=== PATIENT | female | born 1980 | race African-American/Black ===

== ENCOUNTER 2019-08-21 08:25 | Emergency (ER) | payer BC ==
[2019-08-21 08:42] VITALS: BP 139/72; PULSE 97; RESP 18; TEMP 99.5
--- NOTE | 2019-08-21 09:33 | XR ---
EXAMINATION TYPE: XR ankle complete RT , 3 VIEWS DATE OF EXAM ORDERED: 08/21/2019 HISTORY: inversion injury. COMPARISON: None. FINDINGS: There is mild soft tissue swelling adjacent to the lateral malleolus. No fracture, disloca tion or ankle joint effusion is seen. IMPRESSION: NO ACUTE OSSEOUS LESION.
--- NOTE | 2019-08-21 09:45 | ED ---
Lower Extremity Injury HPI - General Chief Complaint: Extremity Injury, Lower Stated Complaint: right ankle pain Time Seen by Provider: 08/21/19 08:35 Source: patient Mode of arrival: wheelchair - History of Present Illness Initial Comments: 39yo female presenting today for chief complaint of right ankle pain. Patient states she woke up in the middle night around 4:30-5AM to get food when she slipped on the top step falling on her bottom twisting her right ankle. Patient denies any injury to the head neck back upper extremities or left leg. Patient states she inverted her right ankle and has swelling on the lateral aspect. Patient sates he woke up this morning and had pain when with weightbearing she presents emergency department to evaluate for fracture. Patient denies any numbness tingling loss sensation coolness pallor of extremity. Patient states she is able still able to fully range at the joint. Remaining every system negative upon arrival patient appears well no signs of acute distress ambulatory with limp - Related Data Previous Rx's Medication Instructions Recorded HYDROcodone/APAP 5-325MG [Runge 5] 1 - 2 each PO Q4H PRN #20 tab 03/27/15 Allergies Allergy/AdvReac Type Severity Reaction Status Date / Time No Known Allergies Allergy Verified 08/21/19 08:58 Review of Systems ROS Statement: Those systems with pertinent positive or pertinent negative responses have been documented in the HPI. ROS Other: All systems not noted in ROS Statement are negative. Past Medical History Past Medical History: Diabetes Mellitus, GERD/Reflux, Skin Disorder Additional Past Medical History / Comment(s): HX SL MURMUR CHILD. GESTATIONAL DIABETES, GERD W/ . MINOR ECZEMA. History of Any Multi-Drug Resistant Organisms: None Reported Past Surgical History: Section, Tubal Ligation Additional Past Surgical History / Comment(s): Sinus Surgery. Past Anesthesia/Blood Transfusion Reactions: Previous Problems w/ Anesthesia Additional Past Anesthesia/Blood Transfusion Reaction / Comment(s): 2010 W/ BLOCK FOR C-S DEVELOPED SEVERE ITCHING. Past Psychological History: No Psychological Hx Reported Smoking Status: Never smoker Past Alcohol Use History: Occasional Past Drug Use History: None Reported - Past Family History Father Family Medical History: Cancer General Exam - General Exam Comments Initial Comments: General: The patient is awake and alert, in no distress, and does not appear acutely ill. Eye: Pupils are equal, round and reactive to light, extra-ocular movements are intact. No nystagmus. There is normal conjunctiva bilaterally. No signs of icterus. No raccoon or amaya sign. Cardiovascular: There is a regular rate and rhythm. No murmur, rub or gallop is appreciated. Respiratory: Lungs are clear to auscultation, respirations are non-labored, breath sounds are equal. No wheezes, stridor, rales, or rhonchi. Musculoskeletal: Upon inspection of the ankles bilaterally there is mild soft tissue swelling noted over the right lateral malleolus. Patient is tenderness to palpation. Achilles tendon appears intact. She is able to range at the rig ht ankle without difficulties complaining of mild discomfort. Strength preserved sensation intact proximal distal to injury site equal and comparison with unaffected extremity. Not foot drop. No tenderness to palpation of the proximal fibula to palpation or range motion at the right knee. Radial and DP pulses equal bilaterally 2+. Neurological: A&O x 3. CN II-XII intact grossly, There are no obvious motor or sensory deficits. Coordination appears grossly intact. Speech is normal. Skin: Skin is warm and dry and no rashes or lesions are noted. Psychiatric: Cooperative, appropriate mood & affect, normal judgment. Course Vital Signs 08/21/19 08:37 Temperature 99.5 F Pulse Rate 97 Respiratory 18 Rate Blood Pressure 139/72 O2 Sat by Pulse 100 Oximetry Medical Decision Making - Medical Decision Making 39yo presenting for right ankle pain. laterall malleolus swelling/pain. Patient have asked intact. Imaging studies reveal no acute osseous process. Cannot rule out ligamentous injury/tendon injury. Patient placed in ankle brace. Given instruction to use cruthces for comfort and f/u with PCP. For persistent symptoms or recurrent patient obtain orthopedic referral from primary care [facility] discussed risks instruction patient is discharged appearing well after personally reviewing imaging studies. Case discussed with Dr. Diaz. Disposition Clinical Impression: Right ankle sprain, Right ankle injury, Right ankle swelling Disposition: HOME SELF-CARE Condition: Good Instructions (If sedation given, give patient instructions): Ankle Sprain (ED), R.I.C.E. Treatment (ED) Additional Instructions: Please use medication as discussed. Please follow-up with family doctor in the next 2 days, use crutches and brace for comfort, recommend orthopedic follow-up if your symptoms are persistent. Please return to emergency room if the symptoms increase or worsen or for any other concerns. Is patient prescribed a controlled substance at d/c from ED?: No Referrals: Laura Buck MD [Primary Care Provider] - 1-2 days Time of Disposition: 09:43
== END 2019-08-21 10:10 | disposition home or self-care (01) ==
LOC: EC 08:25
DX: S93.401A Sprain of unspecified ligament of right ankle, initial encounter (principal); W10.9XXA Fall (on) (from) unspecified stairs and steps, initial encounter; X50.1XXA Overexertion from prolonged static or awkward postures, initial encounter; Y93.89 Activity, other specified
CPT/HCPCS: 99283

== ENCOUNTER → 2022-10-30 | Outpatient (CLI) | payer OTHER ==
--- NOTE | 2022-10-31 07:22 | MM ---
Reason for Exam: Screening (asymptomatic). Baseline mammogram. Patient History: Menarche at age 13. First Full-Term at age 21. Premenopausal. Patient has history of breast feeding. Last menstrual period: 10/13/2022 Risk Values: Christy 5 year model risk: 0.4%. NCI Lifetime model risk: 8.0%. Prior Study Comparison: Patient's first Mammogram. Tissue Density: The breast tissue is heterogeneously dense. This may lower the sensitivity of mammography. Findings: Analyzed By CAD. Subtle distortion middle to posterior depth upper outer aspect right breast is more prominent on the XCCL view image 54 corresponding to MLO image 34. Possible asymmetric prominent tissue mimicking spiculated lesion but follow-up is advised. Overall Assessment: Incomplete: need additional imaging evaluation, BI-RAD 0 Management: Diagnostic Mammogram of the right breast. Diagnostic Breast Ultrasound of the right breast. Return for additional spot 3-D views and 3-D true lateral view along with targeted ultrasound. Patient should continue monthly self-breast exams. A clinical breast exam by your physician is recommended on an annual basis. This exam should not preclude additional follow-up of suspicious palpable abnormalities. Note on Christy scores and lifetime risk: 1. A Christy score greater than 3% is considered moderate risk. If this is the case, consider specialist referral to assess eligibility for a risk reducing agent. 2. If overall lifetime risk for the development of breast cancer is 20% or higher, the patient may qualify for future screening with alternating mammogram and breast MRI. Electronically signed and approved by: Pedro Bernard M.D.
== END | disposition home or self-care (01) ==
LOC: RADMAMWWP 07:21
PROVIDERS: ATTEND Obstetrics & Gynecology
DX: Z12.31 Encounter for screening mammogram for malignant neoplasm of breast (principal)
CPT/HCPCS: 77063; 77067

== ENCOUNTER → 2022-11-04 | Outpatient (CLI) | payer OTHER ==
--- NOTE | 2022-11-04 14:30 | USB ---
Reason for Exam: Additional evaluation requested from abnormal screening. Patient History: Menarche at age 13. First Full-Term at age 21. Premenopausal. Patient has history of breast feeding. Risk Values: Christy 5 year model risk: 0.4%. NCI Lifetime model risk: 8.0%. Technique: Method: Targeted. Prior Study Comparison: 10/30/2022 Bilateral MG 3D screening mammo w/cad, [facility]. Findings: The upper outer quadrant of the right breast, the axilla of the right breast and the retroareolar of the right breast were scanned. Imaged: Ultrasound imaging of: Area of concern in the right upper outer quadrant, retroareolar region and axilla. No evidence for organizing fluid collection or mass. Overall Assessment: Negative, BI-RAD 1 Management: Screening Mammogram of both breasts in 1 year. A clinical breast exam by your physician is recommended on an annual basis and results should be correlated with mammographic findings. This exam should not preclude additional follow-up of suspicious palpable abnormalities. Results were given to the patient verbally at the time of exam. Electronically signed and approved by: Hardik Villasenor DO
--- NOTE | 2022-11-04 14:59 | MM ---
Reason for Exam: Additional evaluation requested from abnormal screening. Last screening mammogram was performed less than 1 month ago. Patient History: Menarche at age 13. First Full-Term at age 21. Premenopausal. Patient has history of breast feeding. Risk Values: Christy 5 year model risk: 0.4%. NCI Lifetime model risk: 8.0%. Tissue Density: Right: The breast tissue is heterogeneously dense. This may lower the sensitivity of mammography. Findings: Analyzed By CAD. Fibroglandular tissue in the right upper outer quadrant is similar morphology compresses out on spot compression imaging. No new suspicious masses, calcifications or distortions. Overall Assessment: Incomplete: need additional imaging evaluation, BI-RAD 0 Management: Diagnostic Breast Ultrasound of the right breast. . Results were given to the patient verbally at the time of exam. Patient should continue monthly self-breast exams. A clinical breast exam by your physician is recommended on an annual basis. This exam should not preclude additional follow-up of suspicious palpable abnormalities. Note on Christy scores and lifetime risk: 1. A Christy score greater than 3% is considered moderate risk. If this is the case, consider specialist referral to assess eligibility for a risk reducing agent. 2. If overall lifetime risk for the development of breast cancer is 20% or higher, the patient may qualify for future screening with alternating mammogram and breast MRI. Electronically signed and approved by: Hardik Villasenor DO
== END | disposition home or self-care (01) ==
LOC: RADMAMWWP 13:39
PROVIDERS: ATTEND Obstetrics & Gynecology
DX: R92.8 Other abnormal and inconclusive findings on diagnostic imaging of breast (principal)
CPT/HCPCS: 77061; 77065

== ENCOUNTER 2024-09-07 08:05 | Emergency (ER) | payer OTHER ==
--- NOTE | 2024-09-07 08:23 | ED ---
General Adult HPI - General Chief complaint: Neuro Symptoms/Deficit Stated complaint: Numbness in lip Time Seen by Provider: 09/07/24 08:10 Source: patient, RN notes reviewed Mode of arrival: ambulatory Limitations: no limitations - History of Present Illness Initial comments: Patient is a 44-year-old female present to the emergency department with conc erns for left lip numbness. Onset of symptoms was when she woke several hours ago. Patient has some nausea at that time however that only lasted a few minutes and has resolved. No weakness. No history of similar symptoms previously. No other area of involvement. No confusion. No visual changes. No speech problem. - Related Data Home Medications Medication Instructions Recorded Confirmed No Known Home Medications 09/07/24 09/07/24 Allergies Allergy/AdvReac Type Severity Reaction Status Date / Time No Known Allergies Allergy Verified 09/07/24 09:00 Review of Systems ROS Statement: Those systems with pertinent positive or pertinent negative responses have been documented in the HPI. ROS Other: All systems not noted in ROS Statement are negative. Constitutional: Denies: fever Eyes: Denies: eye pain ENT: Denies: ear pain Respiratory: Denies: cough Cardiovascular: Denies: chest pain Endocrine: Denies: fatigue Gastrointestinal: Denies: abdominal pain Neurological: Reports: as per HPI. Denies: headache, weakness, confusion Past Medical History Past Medical History: GERD/Reflux, Skin Disorder Additional Past Medical History / Comment(s): HX SL MURMUR CHILD. GESTATIONAL DIABETES, GERD W/ . MINOR ECZEMA. History of Any Multi-Drug Resistant Organisms: None Reported Past Surgical History: Section, Tubal Ligation Additional Past Surgical History / Comment(s): Sinus Surgery. Past Anesthesia/Blood Transfusion Reactions: Previous Problems w/ Anesthesia Additional Past Anesthesia/Blood Transfusion Reaction / Comment(s): 2010 W/ BLOCK FOR C-S DEVELOPED SEVERE ITCHING. Past Psychological History: No Psychological Hx Reported Smoking Status: Never smoker Past Alcohol Use History: Occasional Past Drug Use History: None Reported - Past Family History Father Family Medical History: Cancer General Exam Limitations: no limitations General appearance: alert, in no apparent distress Head exam: Present: normocephalic Eye exam: Present: normal appearance, PERRL, EOMI ENT exam: Present: normal oropharynx Neck exam: Present: normal inspection Respiratory exam: Present: normal lung sounds bilaterally Cardiovascular Exam: Present: regular rate, normal rhythm GI/Abdominal exam: Present: soft. Absent: tenderness Extremities exam: Present: normal inspection Neurological exam: Present: alert, oriented X3, CN II-XII intact. Absent: motor sensory deficit Expanded Neurological exam: Present: protecting the airway Speech: Present: fluid speech Cranial nerves: EOM's Intact: Normal, Facial Sensation: Normal Cerebellar function: Finger to Nose: Normal Sensory exam: Upper Extremity Light Touch: Normal, Lower Extremity Light Touch: Normal Motor strength exam: RUE: 5, LUE: 5, RLE: 5, LLE: 5 Eye Response: (4) open spontaneously Motor Response: (6) obeys commands Verbal Response: (5) oriented Psychiatric exam: Present: normal affect, normal mood Skin exam: Present: normal color Course Vital Signs 09/07/24 09/07/24 08:06 09:06 Temperature 98.1 F Pulse Rate 106 H 86 Respiratory 20 18 Rate Blood Pressure 189/94 155/88 O2 Sat by Pulse 100 98 Oximetry Medical Decision Making - Medical Decision Making Was pt. sent in by a medical professional or institution (Dr. PA, FORGING DIE SINKER, urgent care, hospital, or custodial...) When possible be specific @ -No Did you speak to anyone other than the patient for history (EMS, parent, family, police, friend...)? What history was obtained from this source @ -No Did you review nursing and triage notes (agree or disagree)? Why? @ -I reviewed and agree with nursing and triage notes Were old charts reviewed (outside hosp., previous admission, EMS record, old EKG, old radiological studies, urgent care reports/EKG's, custodial records)? Report findings @ -No old charts were reviewed Differential Diagnosis (chest pain, altered mental status, abdominal pain women, abdominal pain men, vaginal bleeding, weakness, fever, dyspnea, syncope, headache, dizziness, GI bleed, back pain, seizure, CVA, palpatations, mental health, musculoskeletal)? @ -Differential Weakness: Hypoglycemia, shock, sepsis, hyponatremia, anemia, infection, OH, ETOH, adverse medicine reaction, overdose, stroke, this is not meant to be an all-inclusive list. EKG interpreted by me (3pts min.). @ -As above X-rays interpreted by me (1pt min.). @ -None done CT interpreted by me (1pt min.). @ -None done U/S interpreted by me (1pt. min.). @ -None done What testing was considered but not performed or refused? (CT, X-rays, U/S, labs)? Why? @ -None What meds were considered but not given or refused? Why? @ -None Did you discuss the management of the patient with other professionals (professionals i.e. DrMc, PA, FORGING DIE SINKER, lab, RT, psych nurse, social worker clinical, extraction machine operator, teacher, chief juvenile probation officer, watch case polisher)? Give summary @ -No Was smoking cessation discussed for >3mins.? @ -No Was critical care preformed (if so, how long)? @ -No Were there social determinants of health that impacted care today? How? (Homelessness, low income, unemployed, alcoholism, drug addiction, transportation, low edu. Level, literacy, decrease access to med. care, penitentiary, rehab)? @ -No Was there de-escalation of care discussed even if they declined (Discuss DNR or withdrawal of care, Hospice)? DNR status @ -No What co-morbidities impacted this encounter? (DM, HTN, Smoking, COPD, CAD, Cancer, CVA, ARF, Chemo, Hep., AIDS, mental health diagnosis, sleep apnea, morbid obesity)? @ -None Was patient admitted / discharged? Hospital course, mention meds given and route, prescriptions, significant lab abnormalities, going to OR and other pertinent info. @ -Patient presents with numbness sensation to her left lower lip. No weakness on exam. No other neurological symptoms or abnormal findings on exam. CT scan unremarkable. Patient reevaluated and updated. Patient we discharged with follow-up with her primary care physician. Undiagnosed new problem with uncertain prognosis? @ -No Drug Therapy requiring intensive monitoring for toxicity (Heparin, Nitro, Insulin, Cardizem)? @ -No Were any procedures done? @ -No Diagnosis/symptom? @ -Paresthesia Acute, or Chronic, or Acute on Chronic? @ -Acute Uncomplicated (without systemic symptoms) or Complicated (systemic symptoms)? @ -Default Side effects of treatment? @ -No Exacerbation, Progression, or Severe Exacerbation? @ -No Poses a threat to life or bodily function? How? (Chest pain, [place], [place], pneumonia, PE, COPD, DKA, ARF, appy, cholecystitis, CVA, Diverticulitis, Homicidal, Suicidal, threat to staff... and all critical care pts) @ -No Disposition Clinical Impression: Paresthesia Disposition: HOME SELF-CARE Condition: Stable Instructions (If sedation given, give patient instructions): Paresthesia (ED) Additional Instructions: Please do follow-up with your primary care physician in the next day or 2 for recheck. Return for weakness, weakness of the face, loss of sensation, confusion, speech problems, worsening symptoms or any other concerns. Is patient prescribed a controlled substance at d/c from ED?: No Referrals: Laura Buck MD [Primary Care Provider] - 1-2 days Time of Disposition: 09:37
--- NOTE | 2024-09-07 08:50 | CT ---
EXAMINATION TYPE: CT brain wo con DATE OF EXAM: 09/07/2024 8:43 AM COMPARISON: None. CLINICAL INDICATION: Female, 44 years old with history of neuro, Nuimbness in lip TECHNIQUE: Brain: Axial CT images of the brain were obtained with coronal and sagittal reformats created and rev iewed. Contrast used: None. Oral contrast used: None. CT DLP: 1168.6 mGycm, Automated exposure control for dose reduction was used. FINDINGS: Brain: Extra-axial spaces: No abnormal extra-axial fluid collections. Ventricular system: Within normal limits Cerebral parenchyma: No acute intraparenchymal hemorrhage or mass effect. The hagan-white junction is well differentiated. Cerebellum: Unremarkable. Mass effect: No evidence of midline shift. Intracranial vasculature: unremarkable Soft tissues: Normal. Calvarium/osseous structures: No depressed skull fracture. Paranasal sinuses and mastoid air cells: Mild scattered paranasal sinus disease. Visualized orbits: Orbital contents are intact. IMPRESSION: No acute intracranial process. [facility], , 09/07/2024 8:47 AM
[2024-09-07 09:07] VITALS: RESP 18
[2024-09-07 09:44] VITALS: BP 148/89; PULSE 76; TEMP 97.9
== END 2024-09-07 09:46 | disposition home or self-care (01) ==
LOC: EC 08:05
DX: R20.2 Paresthesia of skin (principal)
CPT/HCPCS: 70450; 99284; 99285

== ENCOUNTER → 2024-10-07 | Outpatient (CLI) | payer OTHER ==
--- NOTE | 2024-10-07 08:25 | MM ---
Reason for Exam: Screening (asymptomatic). Last mammogram was performed 2 year(s) and 0 month(s) ago. Patient History: Menarche at age 13. First Full-Term at age 21. Premenopausal. Patient has history of breast feeding. Risk Values: Christy 5 year model risk: 0.5%. NCI Lifetime model risk: 7.9%. Prior Study Comparison: 10/30/2022 Bilateral MG 3D screening mammo w/cad, [facility]. 11/04/2022 Right MG 3D work up w/cad RT, [facility]. Tissue Density: The breasts are heterogeneously dense, which may obscure small masses. Findings: Analyzed By CAD. There is no suspicious group of microcalcifications or new suspicious mass in either breast. Overall Assessment: Negative, BI-RAD 1 Management: Screening Mammogram of both breasts in 1 year. . Patient should continue monthly self-breast exams. A clinical breast exam by your physician is recommended on an annual basis. This exam should not preclude additional follow-up of suspicious palpable abnormalities. Note on Christy scores and lifetime risk: 1. A Christy score greater than 3% is considered moderate risk. If this is the case, consider specialist referral to assess eligibility for a risk reducing agent. 2. If overall lifetime risk for the development of breast cancer is 20% or higher, the patient may qualify for future screening with alternating mammogram and breast MRI. [facility], , 10/07/2024 8:22 AM. Electronically signed and approved by: Abisai Paredes M.D. [facility]
== END | disposition home or self-care (01) ==
LOC: RADMAMWWP 08:03
PROVIDERS: ATTEND Family Medicine
DX: Z12.31 Encounter for screening mammogram for malignant neoplasm of breast (principal); R92.333 Mammographic heterogeneous density, bilateral breasts
CPT/HCPCS: 77063; 77067